=== PATIENT | female | born 1990 | race American Indian/Alaskan Native ===

== ENCOUNTER 2018-07-01 20:30 | Emergency (ER) | payer OTHER ==
[2018-07-02] MEDS ORDERED: TYLENOL PO ONE (01:49)
[2018-07-02] MEDS ORDERED: IBUPROFEN PO ONE (01:49)
[2018-07-02 03:05] LABS: HCG Qualitative,Urine Negative (Negative)
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
[2018-07-02 07:05] VITALS: BP 127/80
== END 2018-07-02 07:07 | disposition home or self-care (01) ==
LOC: ED 20:30
DX: S46.911A Strain of unspecified muscle, fascia and tendon at shoulder and upper arm level, right arm, initial encounter (principal); M62.838 Other muscle spasm; M25.561 Pain in right knee; M25.521 Pain in right elbow; Z87.891 Personal history of nicotine dependence; V89.2XXA Person injured in unspecified motor-vehicle accident, traffic, initial encounter; Y93.89 Activity, other specified; Y92.488 Other paved roadways as the place of occurrence of the external cause; Y99.8 Other external cause status
CPT/HCPCS: 70450; 72125; 81025; 99284